=== PATIENT | male | born 1930 | race Caucasian/White ===

== ENCOUNTER 2018-09-20 18:30 | Inpatient (IN) | payer MEDICARE, OTHER ==
[2018-09-20 21:28] VITALS: BMI 25.4
[2018-09-20] MEDS ORDERED: Acetaminophen 325 MG TAB PO PRN (22:51)
[2018-09-20] MEDS ORDERED: Atorvastatin Calcium 40 MG TAB PO SCH (23:30)
[2018-09-20] MEDS ORDERED: Colchicine 0.6 MG TAB PO SCH (23:30)
[2018-09-20] MEDS ORDERED: Docusate 100 MG CAP PO SCH (23:30)
[2018-09-20] MEDS ORDERED: Losartan Potassium 50 MG TAB PO SCH (23:30)
[2018-09-20] MEDS ORDERED: Magnesium Oxide 400 MG TAB PO SCH (23:30)
[2018-09-20] MEDS ORDERED: CEFADROXIL 500 MG PO SCH (23:30)
[2018-09-21 05:40] LABS: #Basophils 0.2 thou/uL (0.0-0.2); #Eosinphils 0.3 thou/uL (0.0-0.7); #Monocytes 1.3 thou/uL (0.11-0.59); #Neutrophils 8.8 thou/uL (1.40-6.50); %Basophils 1.3 % (0.0-1.0); %Eosinophils 2.2 % (0.0-10.0); %Monocytes 10.3 % (0.0-10.0); %Neutrophils 70.1 % (42.0-75.0); Anisocytosis SLIGHT = 6-15 cells (100X) (0-5/hpf); Burr Cells SLIGHT = 2-5 cells (100X) (0-1/hpf); Hemoglobin 12.3 g/dL (14.0-18.0); Hypochromia SLIGHT = 6-15 cells (100X) (0-5/hpf); MDiff Complete? YES; Mean Corpuscular HGB CONC 30.3 g/dL (32.0-36.0); Mean Corpuscular Hemoglobin 23.6 pg (27.0-31.0); Mean Corpuscular Volume 77.9 fL (78.0-98.0); Mean Platelet Volume 8.2 fL (7.4-10.4); Microcytosis SLIGHT = 6-15 cells (100X) (0-5/hpf); Platelet Count 302 thou/uL (130-400); Platelet Morphology Comment Appears Adequate; RBC Distribution Width 16.2 % (11.5-14.5); Red Blood Cell (RBC) Count 5.22 mill/uL (4.70-6.10); White Blood Cell (WBC) Count 12.5 thou/uL (4.8-10.8)
[2018-09-21 05:48] LABS: ALT (SGPT) 20 U/L (8-55); AST (SGOT) 22 U/L (5-34); Albumin 3.1 g/dL (3.4-4.8); Alkaline Phosphatase 104 U/L (40-150); Anion Gap 14 mmol/L (10-20); BUN (Urea Nitrogen) 20 mg/dL (8.4-25.7); Bilirubin, Total 0.5 mg/dL (0.2-1.2); Calc. Creatinine Clearance 107 mL/min (70-130); Calcium 8.7 mg/dL (7.8-10.44); Carbon Dioxide 23 mmol/L (23-31); Chloride 107 mmol/L (98-107); Estimated GFR-MDRD Greater than 90; Globulin 2.9 g/dL (2.4-3.5); Glucose 101 mg/dL (83-110); Potassium 4.5 mmol/L (3.5-5.1); Sodium 139 mmol/L (136-145)
[2018-09-21] MEDS: Levothyroxine Sodium 88 MCG TAB PO SCH (05:55)
[2018-09-21] MEDS: Multivitamin W/ Minerals 1 TAB PO SCH (08:28)
[2018-09-21] MEDS: Amlodipine 5 MG TAB PO SCH (08:28)
[2018-09-21] MEDS: Aspirin 81 mg Enteric Coated Tablet PO SCH (08:28)
[2018-09-21] MEDS: Docusate 100 MG CAP PO SCH ×2 (08:29→21:43)
[2018-09-21] MEDS: Colchicine 0.6 MG TAB PO SCH ×2 (08:32→21:44)
[2018-09-21] MEDS: CEFADROXIL 500 MG PO SCH ×2 (08:33→21:45)
--- NOTE | 2018-09-21 14:26 | HP ---
CHIEF COMPLAINT: Syncope with symptomatic bradycardia requiring pacemaker placement, now transferred here for therapy. BRIEF HISTORY: This is a pleasant 87-year-old male, who apparently had an episode of syncope while at home and on the way to the emergency room, was noted to have sinus bradycardia with heart rate down in the 30s. He was admitted to the hospital to ICU, was on Isuprel drip and then underwent pacemaker placement. He was felt to be a candidate for inpatient rehabilitation and transferred here. He was noted to have some leukocytosis, but cultures have been negative. 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 Currently, he is lying in bed and denies any concerns. No family at bedside. He does have his left arm in a sling. He denies any fever, chills, chest pain, or shortness of breath. PAST MEDICAL HISTORY: 1. Atrial fibrillation. 2. Chronic diastolic congestive heart failure. 3. Coronary artery disease. 4. History of DVT, right leg. 5. Hypertension. 6. Dyslipidemia. 7. Peripheral vascular disease. 8. Obstructive sleep apnea, unable to tolerate CPAP. 9. History of hemorrhoids. 10. Migraine headaches. 11. Leukocytosis, has been seen by Hematology. 12. Hypothyroidism. 13. Chronic obstructive pulmonary disease. PAST SURGICAL HISTORY: 1. Splenectomy. 2. Bilateral inguinal hernia repair. 3. Partial thyroidectomy. 4. History of right knee replacement. 5. History of colonoscopy. 6. GreenLight laser photovaporization of the prostate. 7. Tonsillectomy. 8. Recent pacemaker placement. FAMILY HISTORY: Positive for congestive heart failure, coronary artery disease, hypertension, and aortic aneurysm. PSYCHOSOCIAL HISTORY: He is . He is a former smoker. He quit smoking at age 64, has more than a 50 pack-year history of smoking. Denies any alcohol or recreational drug abuse. REVIEW OF SYSTEMS: CARDIOVASCULAR SYSTEM: Denies any chest pain, shortness of breath, palpitations, PND, orthopnea, or pedal edema. RESPIRATORY SYSTEM: Denies any chronic cough, expectoration, or pleuritic type chest pain. GASTROINTESTINAL SYSTEM: Denies any nausea, vomiting, diarrhea, constipation, hematemesis, melena, or hematochezia. GENITOURINARY SYSTEM: Denies any frequency, urgency, dysuria, or hematuria. CENTRAL NERVOUS SYSTEM: Recent episode of syncope related to bradycardia. Denies any focal numbness or weakness. SHEENT: Denies any difficulty speech, vision, hearing, or swallowing. SKIN: Denies any rash. MEDICATIONS: He has been transferred here on the following medications; 1. Tylenol 650 q.4 p.r.n. 2. Amlodipine 5 mg daily. 3. Aspirin 81 mg daily. 4. Atorvastatin 40 mg daily. 5. Duricef 500 mg b.i.d. for 4 more days for prophylaxis for pacemaker placement. 6. Colchicine 0.6 mg p.o. b.i.d. 7. Colace 100 mg b.i.d. 8. Multivitamin one tablet daily. 9. Levoxyl 88 mcg daily. 10. Losartan 50 mg daily. 11. Mag-Ox 400 mg daily. ALLERGIES: NO KNOWN DRUG ALLERGIES. PHYSICAL EXAMINATION: GENERAL: Very pleasant 87-year-old male, who is resting comfortably in bed and denies any concerns. He responds appropriate to questions. No family at bedside. VITAL SIGNS: He is afebrile. Heart rate is 83, respirations 20, oxygen saturation 94% on room air, and blood pressure 160/73. HEENT: Normocephalic and atraumatic. Pupils are equally reactive to light and accommodation. Extraocular muscles are intact. No JVD, thyromegaly, cervical lymphadenopathy, or throat exudates. No carotid bruits. CARDIOVASCULAR SYSTEM: S1 and S2 plus. Rate and rhythm, regular. RESPIRATORY SYSTEM: Normal vesicular breath sounds heard in all lung ng with decreased air entry in the bases. ABDOMEN: Soft, nontender, bowel sounds heard in all quadrants. EXTREMITIES: Without cyanosis or clubbing. Peripheral pulses are palpable. Left arm in a sling. CENTRAL NERVOUS SYSTEM: AAO x3. Cranial nerves 2 through 12 are intact. Generalized weakness. The pacemaker site is healthy. LABORATORY VALUES: Show white count of 12.5, hemoglobin and hematocrit are 12.3 and 40.7, with a platelet count of 302. Sodium 139, potassium 4.5, BUN and creatinine are 20 and 0.64. IMPRESSION: 1. Symptomatic bradycardia with syncope, requiring pacemaker placement. 2. Chronic diastolic congestive heart failure. 3. Coronary artery disease. 4. Hypertension. 5. Dyslipidemia. 6. Chronic obstructive pulmonary disease. 7. Peripheral vascular disease. 8. Deconditioning. PLAN: 1. Continue discharge medications from previous hospital. 2. Change Duricef to something similar since the Duricef is not on formulary here. 3. Monitor pacemaker site. 4. Heart healthy diet. 5. DVT prophylaxis with PlexiPulses. 6. Decubitus precaution. 7. Stress ulcer prophylaxis. 8. Routine laboratory values. 9. PT and OT eval and treat. 10. Discussed with the patient and nursing in detail. All questions answered. 11. No family at bedside. Job ID: [id number]
[2018-09-21] MEDS: Cephalexin 250 MG CAP PO SCH ×2 (14:44→21:44)
[2018-09-21] MEDS: Magnesium Oxide 400 MG TAB PO SCH (21:44)
[2018-09-21] MEDS: Atorvastatin Calcium 40 MG TAB PO SCH (21:44)
[2018-09-21] MEDS: Losartan Potassium 50 MG TAB PO SCH (21:44)
[2018-09-22] MEDS: Cephalexin 250 MG CAP PO SCH ×3 (05:16→22:04)
[2018-09-22] MEDS: Levothyroxine Sodium 88 MCG TAB PO SCH (05:16)
[2018-09-22] MEDS: Multivitamin W/ Minerals 1 TAB PO SCH (09:11)
[2018-09-22] MEDS: Colchicine 0.6 MG TAB PO SCH ×2 (09:11→21:02)
[2018-09-22] MEDS: Amlodipine 5 MG TAB PO SCH (09:11)
[2018-09-22] MEDS: Docusate 100 MG CAP PO SCH ×2 (09:11→21:03)
[2018-09-22] MEDS: CEFADROXIL 500 MG PO SCH ×2 (09:12→21:03)
[2018-09-22] MEDS: Aspirin 81 mg Enteric Coated Tablet PO SCH (09:14)
[2018-09-22] MEDS ORDERED: Polyethylene Glycol 3350 17 GM Packet PO PRN (13:03)
--- NOTE | 2018-09-22 13:30 | PRG ---
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 He would like a laxative. He states he usually takes MiraLAX at home and it works great. He denies any other concerns or questions. His spouse is in the room. He is happy with his progress. Discussed with nursing. OBJECTIVE: VITAL SIGNS: He is afebrile, heart rate 76, respirations 18, oxygen saturation 98% on room air, and blood pressure is 119/64. CARDIOVASCULAR SYSTEM: S1 and S2 plus. RESPIRATORY SYSTEM: Normal vesicular breath sounds. ABDOMEN: Soft, nontender. Bowel sounds heard in all quadrants. EXTREMITIES: Without cyanosis or clubbing. ACD site incision is healthy. CENTRAL NERVOUS SYSTEM: A and O x3. Cranial nerves 2 through 12 are intact. Improving deconditioning. IMPRESSION: 1. Symptomatic bradycardia with syncope requiring pacemaker placement. 2. Atrial fibrillation. 3. Chronic diastolic congestive heart failure. 4. Coronary artery disease. 5. Hypertension. 6. Dyslipidemia. 7. Peripheral vascular disease. 8. Constipation. 9. Chronic obstructive pulmonary disease. PLAN: 1. Continue current medications, but add MiraLAX 17 g in 8 ounces of water daily. 2. Heart healthy diet. 3. Monitor blood pressure and adjust medications as needed. 4. Monitor pacemaker site. 5. Physical therapy and occupational therapy. 6. Routine laboratory values. 7. DVT prophylaxis with PlexiPulses. 8. Decubitus precautions. 9. Stress ulcer prophylaxis. 10. Discussed with the patient and in detail. All questions answered. Job ID: [id number]
[2018-09-22] MEDS: Atorvastatin Calcium 40 MG TAB PO SCH (21:03)
[2018-09-22] MEDS: Magnesium Oxide 400 MG TAB PO SCH (21:03)
[2018-09-22] MEDS: Losartan Potassium 50 MG TAB PO SCH (21:03)
[2018-09-23] MEDS: Cephalexin 250 MG CAP PO SCH ×3 (05:24→23:00)
[2018-09-23] MEDS: Levothyroxine Sodium 88 MCG TAB PO SCH (05:24)
[2018-09-23] MEDS: Docusate 100 MG CAP PO SCH ×2 (08:41→21:07)
[2018-09-23] MEDS: Colchicine 0.6 MG TAB PO SCH ×2 (08:41→21:07)
[2018-09-23] MEDS: Aspirin 81 mg Enteric Coated Tablet PO SCH (08:41)
[2018-09-23] MEDS: Amlodipine 5 MG TAB PO SCH (08:42)
[2018-09-23] MEDS: Multivitamin W/ Minerals 1 TAB PO SCH (08:42)
[2018-09-23] MEDS: CEFADROXIL 500 MG PO SCH ×2 (08:45→21:07)
--- NOTE | 2018-09-23 09:54 | PRG ---
DATE OF SERVICE: 09/23/2018 SUBJECTIVE: Mr. Kitchen did have a bowel movement yesterday. He is feeling much better. He denies any questions or concerns. No family at bedside. He was also able to get his pacemaker monitor working. OBJECTIVE: VITAL SIGNS: He is afebrile. Heart rate 69, respirations 20, oxygen saturation 94% on room air, and blood pressure 133/66. CARDIOVASCULAR SYSTEM: S1 and S2 plus. RESPIRATORY SYSTEM: Normal vesicular breath sounds. ABDOMEN: Soft and nontender. Bowel sounds heard in all quadrants. EXTREMITIES: Without cyanosis or clubbing. CENTRAL NERVOUS SYSTEM: AAO x3. Cranial nerves 2 through 12 intact. Generalized weakness. IMPRESSION: 1. Symptomatic bradycardia with syncope requiring pacemaker placement. 2. History of atrial fibrillation. 3. Chronic diastolic congestive heart failure. 4. Coronary artery disease. 5. Hypertension. 6. Dyslipidemia. 7. Peripheral vascular disease. 8. Obstructive sleep apnea, unable to tolerate CPAP. 9. Hypothyroidism. PLAN: 1. Continue current medications. 2. Heart healthy diet. 3. Bowel regimen. 4. DVT prophylaxis with PlexiPulses. 5. Decubitus precautions. 6. Stress ulcer prophylaxis. 7. Routine laboratory values. 8. Continue PT/OT. 9. Recheck CBC and BMP on Wednesday. 10. Discussed with the patient in detail. All questions answered. Job ID: [id number]
[2018-09-23] MEDS: Magnesium Oxide 400 MG TAB PO SCH (21:07)
[2018-09-23] MEDS: Atorvastatin Calcium 40 MG TAB PO SCH (21:07)
[2018-09-23] MEDS: Losartan Potassium 50 MG TAB PO SCH (21:07)
[2018-09-24] MEDS: Levothyroxine Sodium 88 MCG TAB PO SCH (06:07)
[2018-09-24] MEDS: Cephalexin 250 MG CAP PO SCH ×3 (06:07→21:28)
[2018-09-24] MEDS: Amlodipine 5 MG TAB PO SCH (08:53)
[2018-09-24] MEDS: Docusate 100 MG CAP PO SCH ×2 (08:54→20:47)
[2018-09-24] MEDS: Aspirin 81 mg Enteric Coated Tablet PO SCH (08:54)
[2018-09-24] MEDS: Multivitamin W/ Minerals 1 TAB PO SCH (08:54)
[2018-09-24] MEDS: Colchicine 0.6 MG TAB PO SCH ×2 (08:54→20:47)
[2018-09-24] MEDS: CEFADROXIL 500 MG PO SCH ×2 (08:54→20:48)
--- NOTE | 2018-09-24 13:30 | PRG ---
DATE OF SERVICE: 09/24/2018 SUBJECTIVE: Mr. Kitchen is doing well, resting comfortably in bed. Bowels are becoming more regular. Denies any chest pain or shortness of breath. No further lightheadedness, dizziness, or fainting spells. OBJECTIVE: VITAL SIGNS: He is afebrile. Heart rate 75, respirations 20, oxygen saturation 95% on room air, blood pressure 139/80. CARDIOVASCULAR: S1 and S2 plus. RESPIRATORY: Normal vesicular breath sounds. ABDOMEN: Soft, nontender. Bowel sounds heard in all quadrants. EXTREMITIES: Without cyanosis or clubbing. Chest wall incision for the pacemaker placement site is healthy. IMPRESSION: 1. Symptomatic bradycardia with syncope requiring pacemaker placement. 2. Chronic diastolic congestive heart failure. 3. Coronary artery disease. 4. Hypertension. 5. Dyslipidemia. 6. Peripheral vascular disease. 7. Hypothyroidism. 8. Improving deconditioning. 9. Resolved constipation. PLAN: 1. Continue current medications. 2. Heart healthy, high-fiber diet. 3. DVT prophylaxis with PlexiPulse. 4. Incision care. 5. Decubitus precautions. 6. Stress ulcer prophylaxis. 7. Routine laboratory values. 8. Continue PT/OT. 9. Discussed with the patient in detail, all questions answered. Job ID: [id number]
[2018-09-24] MEDS: Losartan Potassium 50 MG TAB PO SCH (20:47)
[2018-09-24] MEDS: Atorvastatin Calcium 40 MG TAB PO SCH (20:47)
[2018-09-24] MEDS: Magnesium Oxide 400 MG TAB PO SCH (20:47)
[2018-09-25] MEDS: Levothyroxine Sodium 88 MCG TAB PO SCH (05:26)
[2018-09-25] MEDS: Cephalexin 250 MG CAP PO SCH ×3 (05:26→21:19)
[2018-09-25] MEDS: Docusate 100 MG CAP PO SCH ×2 (08:33→21:19)
[2018-09-25] MEDS: Colchicine 0.6 MG TAB PO SCH ×2 (08:33→21:19)
[2018-09-25] MEDS: Amlodipine 5 MG TAB PO SCH (08:33)
[2018-09-25] MEDS: Multivitamin W/ Minerals 1 TAB PO SCH (08:33)
[2018-09-25] MEDS: Aspirin 81 mg Enteric Coated Tablet PO SCH (08:33)
[2018-09-25] MEDS: CEFADROXIL 500 MG PO SCH ×2 (08:34→21:19)
--- NOTE | 2018-09-25 16:11 | PRG ---
DATE OF SERVICE: 09/25/2018 SUBJECTIVE: Mr. Kitchen is doing well. Denies any complaints. Resting comfortably. Tolerating his therapy. No chest pain or shortness of breath. No lightheadedness or dizziness. OBJECTIVE: VITAL SIGNS: He is afebrile, heart rate 90, respirations 20, blood pressure 137/63, oxygen saturation 97% on room air. CARDIOVASCULAR: S1 and S2 plus. RESPIRATORY: Normal vesicular breath sounds. ABDOMEN: Soft and nontender. Bowel sounds in all quadrants. EXTREMITIES: Without cyanosis or clubbing. Peripheral pulses are palpable. CENTRAL NERVOUS SYSTEM: AAO x3. Cranial nerves 2 through 12 intact. Generalized weakness. IMPRESSION: 1. Chronic diastolic congestive heart failure. 2. Coronary artery disease. 3. Symptomatic bradycardia requiring pacemaker placement. 4. Hypertension, well controlled. 5. Dyslipidemia. 6. Peripheral vascular disease. 7. Hypothyroidism. 8. Chronic obstructive pulmonary disease. PLAN: 1. Continue current medications. 2. Heart healthy diet. 3. Monitor heart rate and rhythm. 4. Monitor for any decompensation of heart failure. 5. DVT and stress ulcer prophylaxis. 6. Decubitus precaution. 7. Incision care. 8. Physical therapy. 9. Routine laboratory values. 10. Discussed with the patient and nursing in detail and all questions answered. Job ID: [id number]
[2018-09-25] MEDS: Atorvastatin Calcium 40 MG TAB PO SCH (21:19)
[2018-09-25] MEDS: Losartan Potassium 50 MG TAB PO SCH (21:19)
[2018-09-25] MEDS: Magnesium Oxide 400 MG TAB PO SCH (21:19)
[2018-09-26] MEDS: Cephalexin 250 MG CAP PO SCH ×3 (05:29→20:39)
[2018-09-26] MEDS: Levothyroxine Sodium 88 MCG TAB PO SCH (05:29)
[2018-09-26] MEDS: Aspirin 81 mg Enteric Coated Tablet PO SCH (08:20)
[2018-09-26] MEDS: Colchicine 0.6 MG TAB PO SCH ×2 (08:20→20:36)
[2018-09-26] MEDS: Amlodipine 5 MG TAB PO SCH (08:20)
[2018-09-26] MEDS: Docusate 100 MG CAP PO SCH ×2 (08:20→20:38)
[2018-09-26] MEDS: Multivitamin W/ Minerals 1 TAB PO SCH (08:20)
--- NOTE | 2018-09-26 13:22 | PRG ---
DATE OF SERVICE: 09/26/2018 SUBJECTIVE: Mr. Kitchen is doing well, denies any complaints, resting comfortably, tolerating his therapy. No fever, chills, chest pain, or shortness of breath. Discussed with therapy and they stated that he will be ready for discharge tomorrow. The patient is agreeable. OBJECTIVE: VITAL SIGNS: He is afebrile, heart rate 70, respirations 18, oxygen saturation 93% on room air, and blood pressure . CARDIOVASCULAR SYSTEM: S1 and S2 plus. RESPIRATORY SYSTEM: Normal vesicular breath sounds. ABDOMEN: Soft and nontender. Bowel sounds heard in all quadrants. EXTREMITIES: Without cyanosis, clubbing, or trace edema. Peripheral pulses are palpable. CENTRAL NERVOUS SYSTEM: AAO x3. Cranial nerves 2 through 12 intact. Improving deconditioning. IMPRESSION: 1. Symptomatic sinus bradycardia and syncope requiring pacemaker placement. 2. Coronary artery disease. 3. Hypertension. 4. Dyslipidemia. 5. Peripheral vascular disease. 6. Hypothyroidism. 7. Chronic obstructive pulmonary disease. 8. Chronic diastolic congestive heart failure. PLAN: 1. Continue current medications. 2. Nutritional support. 3. Heart healthy diet. 4. DVT and stress ulcer prophylaxis. 5. Decubitus precautions. 6. Pacemaker site care. 7. Anticipate discharge home tomorrow. The patient is advised to review the med list here and see if he needs prescriptions for anything. He is going to have his check on it. Job ID: [id number]
[2018-09-26] MEDS: CEFADROXIL 500 MG PO SCH ×2 (13:59→20:38)
[2018-09-26] MEDS: Atorvastatin Calcium 40 MG TAB PO SCH (20:36)
[2018-09-26] MEDS: Magnesium Oxide 400 MG TAB PO SCH (20:38)
[2018-09-26] MEDS: Losartan Potassium 50 MG TAB PO SCH (20:38)
[2018-09-27] MEDS: Levothyroxine Sodium 88 MCG TAB PO SCH (05:43)
[2018-09-27] MEDS: Cephalexin 250 MG CAP PO SCH ×2 (05:43→14:25)
[2018-09-27 08:11] VITALS: BP 170/80; TEMP 97.2
[2018-09-27] MEDS: Aspirin 81 mg Enteric Coated Tablet PO SCH (08:58)
[2018-09-27] MEDS: Docusate 100 MG CAP PO SCH (08:58)
[2018-09-27] MEDS: Multivitamin W/ Minerals 1 TAB PO SCH (08:58)
[2018-09-27] MEDS: Amlodipine 5 MG TAB PO SCH (08:58)
[2018-09-27] MEDS: Colchicine 0.6 MG TAB PO SCH (08:58)
[2018-09-27] MEDS: CEFADROXIL 500 MG PO SCH (08:59)
--- NOTE | 2018-09-27 17:13 | DIS ---
DATE OF ADMISSION: 09/20/2018 DATE OF DISCHARGE: 09/27/2018 PRINCIPAL DIAGNOSIS: Symptomatic bradycardia with syncope requiring pacemaker placement. SECONDARY DIAGNOSES: 1. Atrial fibrillation. 2. Coronary artery disease. 3. Hypertension. 4. Dyslipidemia. 5. History of sleep apnea, unable to tolerate CPAP. 6. Peripheral vascular disease. 7. Chronic diastolic congestive heart failure. 8. Hypothyroidism. 9. Chronic obstructive pulmonary disease. COMPLICATIONS: None. ADVERSE REACTIONS: None. PROCEDURES: None. CONSULTATIONS: None. HOSPITAL COURSE: The patient was admitted on 09/20 as a transfer from [facility] after being admitted for symptomatic bradycardia and syncope. He underwent pacemaker placement and transferred here for therapy. He has done well. He required antibiotics for a couple of days just for prophylaxis for the pacemaker placement. He did have episodes of constipation, which resolved with MiraLAX. He has been participating with therapy and was deemed stable for discharge. Discussed with the patient and he states that he does not need any refills. He was started on colchicine at the hospital, but he has had no joint pain, swelling, or erythema, and his colchicine has been discontinued. He will follow up with his PCP in the next week to 10 days as well as his last greaser. Heart-healthy diet. Activity as tolerated. He is to call us with any questions or concerns. DISCHARGE MEDICATIONS: 1. Amlodipine 5 mg daily. 2. Aspirin 81 mg daily. 3. Atorvastatin 40 mg daily. 4. Colace 100 mg b.i.d. p.r.n. 5. Levoxyl 88 mcg daily. 6. Losartan 50 mg daily. 7. Mag-Ox 400 mg daily. PHYSICAL EXAMINATION: VITAL SIGNS: On the day of discharge, he is afebrile, heart rate is 67, respirations 18, oxygen saturation 93% on room air, blood pressure was 170/80 this morning and recheck shows 132/70. CARDIOVASCULAR SYSTEM: S1 and S2 plus. RESPIRATORY SYSTEM: Normal vesicular breath sounds. ABDOMEN: Soft and nontender. Bowel sounds heard in all quadrants. EXTREMITIES: Without cyanosis or clubbing. Peripheral pulses are palpable. CENTRAL NERVOUS SYSTEM: AAO x3. Cranial nerves 2 through 12 intact. Improving deconditioning. DISCHARGE INSTRUCTIONS: 1. Activity restrictions per Cardiology. 2. Outpatient followup with PCP and Cardiology. 3. Heart-healthy diet. 4. Continue current medications. He states that he does not need any refills. I also advised him that if he goes home and he feels like he has missed something to call us and I will take care of it. 5. Discussed with the patient and nursing in detail. All questions answered. Job ID: [id number]
== END 2018-09-27 15:30 | disposition home or self-care (01) | DRG 309 ==
LOC: NAV ACUTE 18:30
PROVIDERS: ADMIT Internal Medicine; ATTEND Internal Medicine
DX: R00.1 Bradycardia, unspecified (principal); I50.32 Chronic diastolic (congestive) heart failure; R55 Syncope and collapse; I25.10 Atherosclerotic heart disease of native coronary artery without angina pectoris; I11.0 Hypertensive heart disease with heart failure; E78.5 Hyperlipidemia, unspecified; J44.9 Chronic obstructive pulmonary disease, unspecified; I73.9 Peripheral vascular disease, unspecified; R53.81 Other malaise; G47.33 Obstructive sleep apnea (adult) (pediatric); E03.9 Hypothyroidism, unspecified; K59.00 Constipation, unspecified; Z96.651 Presence of right artificial knee joint; Z95.0 Presence of cardiac pacemaker; Z86.718 Personal history of other venous thrombosis and embolism; Z90.89 Acquired absence of other organs; Z90.81 Acquired absence of spleen; Z87.891 Personal history of nicotine dependence
CPT/HCPCS: 80053; 85025